=== PATIENT | female | born 1995 | race African-American/Black ===

== ENCOUNTER 2023-06-29 19:19 | Emergency (ER) | payer SELFPAY ==
[~2023-06-29] VITALS: Ht 170.2 cm; Wt 81.8 kg
[2023-06-29 20:10] VITALS: BP 111/70; PULSE 67; RESP 18; TEMP 98.6
[2023-06-29 20:23] LABS: BASOPHILS % (AUTO) 0.4 % (0.0-2.0); EOSINOPHILS % (AUTO) 0.1 % (1.0-6.0); HEMATOCRIT 31.2 % (36-46); HEMOGLOBIN 9.7 g/dL (12.0-16.0); LYMPHOCYTES # (AUTO) 0.9 K/uL (1.0-4.8); LYMPHOCYTES % (AUTO) 6.9 % (22.0-44.0); MEAN CORPUSCULAR HEMOGLOBIN 19.9 pg (26.0-34.0); MEAN CORPUSCULAR VOLUME 64 fL (80-100); MONOCYTES # (AUTO) 0.4 K/uL (0.1-1.0); MONOCYTES % (AUTO) 3.3 % (2.0-9.0); NEUTROPHILS # (AUTO) 11.8 K/uL (1.8-7.7); PLATELET COUNT (AUTO) 241 K/uL (150-450); RED BLOOD CELL COUNT(AUTO) 4.86 MIL/uL (4.00-5.20); RED CELL DISTRIBUTION WIDTH 18.4 % (11.5-14.5); WHITE BLOOD COUNT (AUTO) 13.2 K/uL (4.5-11.0)
[2023-06-29 20:27] LABS: NEUTROPHILS % (AUTO) 89.3 % (40.0-70.0)
[2023-06-29 20:34] LABS: ANION GAP 13 mmol/L (8-16); CARBON DIOXIDE 22 mmol/L (22-29); CHLORIDE 102 mmol/L (98-107); CREATININE 0.88 mg/dL (0.60-1.30); GLOMERULAR FILTR. RATE CALC > 60 mL/min (>60); GLUCOSE,RANDOM 145 mg/dL (70-110); SODIUM SERUM 137 mmol/L (136-145); UREA NITROGEN, BLOOD 12 mg/dL (7-18)
[2023-06-29 20:47] LABS: ALANINE AMINOTRANSFERASE 44 U/L (12-78); ALBUMIN 3.5 g/dL (3.4-5.0); ALKALINE PHOSPHATASE 76 U/L (46-116); ASPARTATE AMINOTRANSFERASE 25 U/L (15-37); HCG,QUANTITATIVE 7 mIU/mL (0-6)
[2023-06-29 21:00] LABS: BILIRUBIN,TOTAL 0.1 mg/dL (0.1-1.0)
[2023-06-29 21:34] LABS: RBC MORPHOLOGY COMMENT ABNORMAL RBC MORPH
[2023-06-29 21:47] LABS: APPEARANCE,URINE TURBID (CLEAR); BILIRUBIN,URINE NEGATIVE (NEGATIVE); COLOR,URINE DARK BROWN (YELLOW); GLUCOSE, URINE (UA) NEGATIVE (NEGATIVE); LEUKOCYTE ESTERASE ,URINE TRACE (NEGATIVE); NITRATE,URINE NEGATIVE (NEGATIVE); OCCULT BLOOD,URINE LARGE (NEGATIVE); PH,URINE 8.5 (5.0-8.0); PROTEIN,URINE 300-600,SEE CONFIRM mg/dL (NEGATIVE); SPECIFIC GRAVITIY, URINE 1.023 (1.003-1.030); UROBILINOGEN,URINE <=1.0 mg/dL (<=1.0)
[2023-06-29 22:00] LABS: SULFOSALICYLIC ACID,URINE 4+ (Negative)
[2023-06-29 22:01] LABS: BACTERIA,URINE None Seen /HPF (None Seen); RBC,URINE Full Field /HPF (0-2); WBC,URINE None Seen /HPF (0-5)
[2023-06-29] MEDS ORDERED: ACET-66 PO (23:10)
[2023-06-29] MEDS ORDERED: IBUP-1554 PO (23:10)
== END 2023-06-29 23:21 | disposition home or self-care (01) ==
LOC: EMS 19:21
DX: R10.2 Pelvic and perineal pain (principal)
CPT/HCPCS: 76801; 80053; 81001; 81002; 84702; 85025; 99284

== ENCOUNTER 2023-07-02 17:52 | Emergency (ER) | payer MEDICAID ==
[~2023-07-02] VITALS: Ht 167.6 cm; Wt 78.2 kg
[~2023-07-02 17:52] MED LIST: ACET-66 PO; IBUP-1554 PO
[2023-07-02 18:08] VITALS: TEMP 99.1
[2023-07-02 18:32] LABS: BASOPHILS % (AUTO) 0.7 % (0.0-2.0); EOSINOPHILS % (AUTO) 0.5 % (1.0-6.0); HEMOGLOBIN 9.3 g/dL (12.0-16.0); LYMPHOCYTES # (AUTO) 2.7 K/uL (1.0-4.8); LYMPHOCYTES % (AUTO) 27.2 % (22.0-44.0); MEAN CORPUSCULAR HEMOGLOBIN 19.9 pg (26.0-34.0); MEAN CORPUSCULAR HGB CONC 30.9 G/dL (31.0-37.0); MEAN CORPUSCULAR VOLUME 64 fL (80-100); MONOCYTES # (AUTO) 0.5 K/uL (0.1-1.0); MONOCYTES % (AUTO) 5.1 % (2.0-9.0); NEUTROPHILS # (AUTO) 6.6 K/uL (1.8-7.7); NEUTROPHILS % (AUTO) 66.5 % (40.0-70.0); PLATELET COUNT (AUTO) 268 K/uL (150-450); RED BLOOD CELL COUNT(AUTO) 4.66 MIL/uL (4.00-5.20); RED CELL DISTRIBUTION WIDTH 18.4 % (11.5-14.5)
[2023-07-02 18:40] LABS: ANION GAP 11 mmol/L (8-16); CALCIUM, TOTAL 9.1 mg/dL (8.8-10.5); CARBON DIOXIDE 23 mmol/L (22-29); CHLORIDE 104 mmol/L (98-107); CREATININE 0.93 mg/dL (0.60-1.30); GLOMERULAR FILTR. RATE CALC > 60 mL/min (>60); GLUCOSE,RANDOM 98 mg/dL (70-110); POTASSIUM 3.8 mmol/L (3.5-5.1); SODIUM SERUM 138 mmol/L (136-145); UREA NITROGEN, BLOOD 10 mg/dL (7-18)
[2023-07-02 18:49] LABS: RBC MORPHOLOGY COMMENT ABNORMAL RBC MORPH
[2023-07-02 18:51] LABS: ALANINE AMINOTRANSFERASE 29 U/L (12-78); ALBUMIN 3.7 g/dL (3.4-5.0); ALKALINE PHOSPHATASE 67 U/L (46-116); ASPARTATE AMINOTRANSFERASE 16 U/L (15-37); BILIRUBIN,TOTAL 0.2 mg/dL (0.1-1.0); HCG,QUANTITATIVE 1 mIU/mL (0-6); LIPASE 20 U/L (16-77); TOTAL PROTEIN, SERUM 7.8 g/dL (6.4-8.2)
[2023-07-02 20:05] VITALS: BP 116/61; PULSE 70; RESP 20
== END 2023-07-02 20:05 | disposition home or self-care (01) ==
LOC: EMS 17:53
DX: R10.2 Pelvic and perineal pain (principal)
CPT/HCPCS: 80053; 83690; 84702; 85025; 99283

== ENCOUNTER 2023-07-03 18:52 | Emergency (ER) | payer MEDICAID ==
[~2023-07-03] VITALS: Ht 160 cm; Wt 72.7 kg
[2023-07-03 18:53] VITALS: BP 113/60; PULSE 74; RESP 18; TEMP 98.2
== END 2023-07-03 20:23 | disposition home or self-care (01) ==
LOC: EMS 18:54
DX: R10.2 Pelvic and perineal pain (principal)
CPT/HCPCS: 86901; 99283